=== PATIENT | female | born 1990 | race Caucasian/White ===

== ENCOUNTER 2017-11-23 17:57 | Emergency (ER) | payer OTHER ==
[~2017-11-23] VITALS: Ht 152.4 cm; Wt 54.0 kg
[2017-11-23] MEDS ORDERED: CLINDAMYCIN HCL 150MG CAPSULE PO ONE (20:00)
[2017-11-23] MEDS ORDERED: HYDROCODONE/ACETAMINOPHEN 5/325MG TABLET PO ONE (20:00)
[2017-11-23 20:20] VITALS: BP 115/65
== END 2017-11-23 20:30 | disposition home or self-care (01) ==
LOC: ER 18:43
DX: K04.7 Periapical abscess without sinus (principal); K01.1 Impacted teeth; F17.200 Nicotine dependence, unspecified, uncomplicated
CPT/HCPCS: 99283